=== PATIENT | male | born 1945 | race Caucasian/White ===

== ENCOUNTER 2020-11-23 15:56 | Emergency (ER) | payer MEDICARE ==
[2020-11-23] MEDS ORDERED: HYDROcodone/Acetaminophen 10/325 mg Tablet ONE (17:54)
== END 2020-11-23 20:47 | disposition home or self-care (01) ==
LOC: ERS 15:56
DX: S32.041A Stable burst fracture of fourth lumbar vertebra, initial encounter for closed fracture (principal); I10 Essential (primary) hypertension; E78.00 Pure hypercholesterolemia, unspecified; Z86.73 Personal history of transient ischemic attack (TIA), and cerebral infarction without residual deficits; I25.2 Old myocardial infarction; Z79.899 Other long term (current) drug therapy; Z79.82 Long term (current) use of aspirin; W18.30XA Fall on same level, unspecified, initial encounter
CPT/HCPCS: 99283